=== PATIENT | male | born 1975 | race Hispanic/Latino ===

== ENCOUNTER 2017-03-06 20:30 | Emergency (ER) | payer OTHER ==
[~2017-03-06] VITALS: Ht 167.6 cm; Wt 76.4 kg
[2017-03-07] MEDS ORDERED: KETOROLAC 60 MG/2 ML VIAL (J1885) IM ONE (00:15)
[2017-03-07] MEDS ORDERED: CYCL10TA PO (00:20)
[2017-03-07] MEDS ORDERED: IBUP80TA PO (00:20)
[2017-03-07 00:56] VITALS: BP 117/69
== END 2017-03-07 00:58 | disposition home or self-care (01) ==
LOC: M ED 20:30
DX: S46.912A Strain of unspecified muscle, fascia and tendon at shoulder and upper arm level, left arm, initial encounter (principal); X50.0XXA Overexertion from strenuous movement or load, initial encounter; Y92.9 Unspecified place or not applicable; Y93.89 Activity, other specified; Y99.9 Unspecified external cause status
CPT/HCPCS: 96372; 99282; J1885

== ENCOUNTER 2017-09-21 11:20 | Emergency (ER) | payer OTHER ==
[2017-09-21] MEDS: KETOROLAC 30 MG/ML VIAL (J1885) IV (11:42)
[2017-09-21] MEDS: NS 1,000 ML IV (11:42)
[2017-09-21] MEDS: diphenhydrAMINE INJ 50MG/ML VIAL (J1200) IV (11:42)
[2017-09-21] MEDS: METOCLOPRAMIDE INJ 10MG/2ML VIAL (J2765) IV (11:43)
== END 2017-09-21 13:39 | disposition home or self-care (01) ==
LOC: M ED 11:20
DX: R51 Headache (principal)
CPT/HCPCS: J1200

== ENCOUNTER → 2018-07-08 | Outpatient (CLI) | payer OTHER ==
[~2018-07-08] MED LIST: CONRAY-43 43% 50ML VIAL (Q9960) As Ordered; LIDOCAINE 1% MDV 20ML VIAL As Ordered; TRIAMCINOLONE ACETONIDE SUSP 40 MG/ML VIAL (J3301) As Ordered
== END ==
LOC: M RADPRO 11:08
DX: M25.851 Other specified joint disorders, right hip (principal)
CPT/HCPCS: 20610